=== PATIENT | male | born 1990 | race Caucasian/White ===

== ENCOUNTER 2021-07-03 09:29 | Emergency (ER) | payer OTHER, SELFPAY ==
[2021-07-03 09:40] VITALS: BP 143/89; PULSE 108; RESP 20; TEMP 36.6; O2SAT 99
--- NOTE | 2021-07-03 10:06 | ED.ABDPAIN ---
HPI - Abdominal Pain General Chief Complaint: Abdominal Pain Stated Complaint: Stomach Pain Time Seen by Provider: 07/03/21 10:06 Source: patient History of Present Illness HPI narrative: Patient presents with concerns for diarrhea. Patient states he has 2-3 loose stools daily. Patient denies any blood in the stools no mucus in his stools no history of abdominal problems. Patient states he did have a gastric sleeve 8 years ago but has had no problems or complications due to the procedure. Patient states he is getting in 2 weeks and is very stressed about the commitment. Patient has not take anything [id number] for his symptoms. Patient states he normally follows a keto diet. Patient denies any abdominal pain or discomfort at this time. Related Data Home Medications Medication Instructions Recorded Confirmed dextroamphetamine-amphetamine 10 mg PO DAILY 07/03/21 07/03/21 [Adderall XR] esomeprazole magnesium 40 mg PO DAILY 07/03/21 07/03/21 lorazepam 0.5 mg PO BID PRN 07/03/21 07/03/21 Allergies Allergy/AdvReac Type Severity Reaction Status Date / Time No Known Allergies Allergy Verified 07/03/21 10:01 Review of Systems Review of Systems: CONSTITUTIONAL: Denies fever, chills, or sweats. EYES: Denies visual changes, redness, or discharge. ENT: Denies rhinorrhea, congestion, sore throat, or otalgia. CARDIOVASCULAR: Denies chest pain, palpitations, or edema. RESPIRATORY: Denies cough or dyspnea. GASTROINTESTINAL: Denies abdominal pain, nausea, vomiting, or diarrhea. GENITOURINARY: Denies dysuria or hematuria. SKIN: Denies rash or itching. MUSCULOSKELETAL: Denies back pain, joint pain, or myalgia. NEUROLOGIC: Denies headache, numbness, or weakness. PSYCHIATRIC: Denies anxiety or depression. PMFSH Comments At time of signature, agree with nursing past medical, surgical, social and family history. There is no relevant family history pertinent to the presenting complaint Exam Narrative: GENERAL: Well-appearing, well-nourished, and in no acute distress. HEAD: Normocephalic, atraumatic. EYES: PERRLA and EOMI. ENT: Nares clear, no rhinorrhea or epistaxis. Mucous membranes moist. NECK: Supple. CHEST: Clear to auscultation. No respiratory distress. HEART: Regular rate and rhythm. No murmur heard. Normal peripheral pulses. ABDOMEN: Soft, nontender, nondistended, normal active bowel sounds. EXTREMITIES: Normal range of motion. No edema. SKIN: Warm, dry, no rash. NEURO: No focal deficits. Alert and oriented x3. [place] Coma Scale Eye Opening: Spontaneous 4 [place] Coma Scale Motor: Obeys Commands 6 [place] Coma Scale Verbal: Oriented 5 [place] Coma Scale Total 15 Course Vital Signs Vital signs: Vital Signs Temperature 36.6 C 07/03/21 09:40 Pulse Rate 108 H 07/03/21 09:40 Respiratory Rate 20 07/03/21 09:40 Blood Pressure 143/89 H 07/03/21 09:40 Pulse Oximetry 99 07/03/21 09:40 Temperature 36.6 C 07/03/21 09:40 Pulse Rate 108 H 07/03/21 09:40 Respiratory Rate 20 07/03/21 09:40 Blood Pressure 143/89 H 07/03/21 09:40 Pulse Oximetry 99 07/03/21 09:40 Addressed elevated BP today. Today's blood pressure higher than recommended range. Discussed importance of follow -up with PCP and possible fci effects/cardiovascular events related to HTN. Currently patient denies headache, dizziness, vision changes, CP or shortness of breath. Critical dx considered and discussed with pt. Educated patient on red flag s/s and to go to ED if s/s occur. Discussed with pt when to return to [facility] or primary care provider. Pt gave verbal understanding, all questions were answered, and pt was agreeable to plan long discussion with patient regarding relaxation techniques to prepare for upcoming wedding. Follow bland diet. Instructed to take Xanax as prescribed by Dr. Luna for anxiety. folloe up with Dr Luna as planned, if any new or worsening fo symptoms go to er immediately Patient ag
== END 2021-07-03 10:15 | disposition home or self-care (01) ==
PROVIDERS: Emergency Provider Nurse Practitioner Family; PCP Family Medicine
DX: R19.7 Diarrhea, unspecified (principal); A41.9 Sepsis, unspecified organism; Z98.84 Bariatric surgery status
CPT/HCPCS: 99211; G0463

== ENCOUNTER 2021-08-16 09:49 | Emergency (ER) | payer OTHER, SELFPAY ==
[2021-08-16 10:00] VITALS: BP 130/97; PULSE 104; RESP 16; TEMP 36.4; O2SAT 98
--- NOTE | 2021-08-16 11:11 | ED.ABDPAIN ---
HPI - Abdominal Pain General Chief Complaint: Abdominal Pain Stated Complaint: Stomach pain Time Seen by Provider: 08/16/21 11:11 Source: patient and RN notes reviewed Mode of arrival: ambulatory Limitations: no limitations History of Present Illness HPI narrative: 30-year-old male with history of anxiety, GERD and gastric sleeve presents with concern for epigastric pain that is intermittent in nature, diarrhea. Reports symptoms started 3 days ago. He reports he had a similar instance of abdominal pain with diarrhea 1 month ago that resolved spontaneously. Reports the pain is at most a 6/10 currently is 3/10. Reports diarrhea is worse in the morning, and causes him to not make it to the toilet not on occasions. He denies any vomiting or nausea. He reports he uses Imodium occasionally, tries not to use it every day. He reports poor appetite. MD elicited complaint: abdominal pain Related Data Home Medications Medication Instructions Recorded Confirmed esomeprazole magnesium 40 mg PO DAILY 07/03/21 08/16/21 lorazepam 0.5 mg PO BID PRN 07/03/21 08/16/21 Allergies Allergy/AdvReac Type Severity Reaction Status Date / Time No Known Allergies Allergy Verified 08/16/21 10:08 Review of Systems Review of Systems: CONSTITUTIONAL: Denies malaise, chills, sweats, or fever. CARDIOVASCULAR: Denies chest pain, palpitations, or edema. RESPIRATORY: Denies cough or dyspnea. GASTROINTESTINAL: Reports epigastric abdominal pain, diarrhea. Denies nausea, vomiting, bloody, or mucous stools. GENITOURINARY: Denies dysuria or hematuria. SKIN: Denies rash or itching, bruising, redness MUSCULOSKELETAL: Denies back pain, joint pain, or myalgia. All systems reviewed & are unremarkable except as noted in HPI and below PMFSH Comments At time of signature, agree with nursing past medical, surgical, social and family history. There is no relevant family history pertinent to the presenting complaint Exam Narrative: GENERAL: Well-appearing, well-nourished, and in no acute distress. HEAD: Normocephalic, atraumatic. EYES: PERRLA, conjunctivae clear, and EOMI. ENT: Nares clear, turbinates pink, no rhinorrhea or epistaxis. Mucous membranes moist. Oropharynx without edema, erythema, or lesions. Tonsils not enlarged and without exudate. NECK: Supple. No lymphadenopathy CHEST: Speaks in full sentences. No respiratory distress. HEART: Regular rate and rhythm. ABDOMEN: Soft, obese, nondistended. No guarding, no rebound tenderness, or rigidity. No pulsatilla masses. Bowel sounds present in all four quadrants. No organomegaly. Negative Abbott?s sign. No periumbilical tenderness. No Supra public tenderness or distension. Good femoral pulses bilaterally. No hernia noted. No scars or surface trauma. SKIN: Warm, dry, no rash. NEURO: Alert and oriented x3. PSYCH: Normal mood and affect Course Course Emergency Course: Patient given referral to GI, instructed to call today. Instructed to go to the emergency room if symptoms worsen before he can see GI. Patient is aware of diagnosis, understands and agrees to treatment plan. Anticipatory guidance given. Patient agrees to follow-up as directed and is aware of reasons to seek care at the emergency department. Portions of this record may have been created with voice recognition software Vital Signs Vital signs: Vital Signs Temperature 97.5 F L 08/16/21 10:00 Pulse Rate 104 H 08/16/21 10:00 Respiratory Rate 16 08/16/21 10:00 Blood Pressure 130/97 H 08/16/21 10:00 Pulse Oximetry 98 08/16/21 10:00 Temperature 97.5 F L 08/16/21 10:00 Pulse Rate 104 H 08/16/21 10:00 Respiratory Rate 16 08/16/21 10:00 Blood Pressure 130/97 H 08/16/21 10:00 Pulse Oximetry 98 08/16/21 10:00 Reviewed. MDM - Abdominal Pain MDM Narrative Medical decision making narrative: Exam findings show no acute concerns or changes; patient is non-toxic appearing and is in no distress. Patient is appropriate for ou
== END 2021-08-16 11:28 | disposition home or self-care (01) ==
PROVIDERS: Emergency Provider Nurse Practitioner; PCP Family Medicine
DX: R10.13 Epigastric pain (principal); R19.7 Diarrhea, unspecified; Z98.84 Bariatric surgery status; K21.9 Gastro-esophageal reflux disease without esophagitis; F41.9 Anxiety disorder, unspecified
CPT/HCPCS: 99211; G0463

== ENCOUNTER 2021-11-12 01:30 | Day surgery (SDC) | payer OTHER, SELFPAY ==
[2021-10-28 15:07] VITALS: BMI 30.8
[2021-11-12 10:58] VITALS: BP 149/104; PULSE 112; RESP 18; TEMP 36.2; O2SAT 98; BMI 32.6
[2021-11-12] MEDS: LACTATED RINGERS 1,000 ML 150 ML IV CONT (11:01)
--- NOTE | 2021-11-12 11:03 | PM.HPGS ---
History of Present Illness History of Present Illness Consent: Risks, benefits, and alternatives have been discussed and questions answered. Patient agrees to proceed with procedure. Chief complaint: diarrhea, abd pain Narrative: Dov Matamoros is a 31 year old male here for egd and colonoscopy. Had gastric sleeve 6-7 years ago, lost about 90 lb. Almost a year of intermittent loss stools, he had accidents about 4-5 times last year better after changed his diet, also epigastric pain on antacids prn Review of Systems Constitutional: Constitutional: Denies headache(s) and Denies weakness Eyes: Eyes: Denies blurry vision ENT: Reports Normal hearing present, Denies headache(s) and Denies neck pain Cardiovascular: Cardiovascular: Denies chest pain and Denies dyspnea Respiratory: Respiratory: Denies dyspnea Gastrointestinal: Gastrointestinal: Reports no additional gastrointestinal complaints Genitourinary: Genitourinary: Denies dysuria Musculoskeletal: Musculoskeletal: Denies neck pain Integumentary/Breasts: Skin/Breast: Denies dry skin Neurologic: Reports Normal hearing present, Denies headache(s) and Denies weakness Psychiatric: Psychiatric: Denies anxiety Endocrine: Endocrine: Denies change in body appearance Hematologic/Lymphatic: Hematologic/Lymphatic: Denies easy bleeding Allergic/Immunologic: Allergic/Immunologic: Denies urticaria PMFSH Past Medical History Medical History (Updated 09/23/21 @ 10:34 by Luís Ochoa MD) Anxiety GERD (gastroesophageal reflux disease) Hepatitis A Surgical History Surgical History (Updated 09/23/21 @ 10:34 by Luís Ochoa MD) H/O gastric sleeve Social History Social History (Updated 09/23/21 @ 10:17 by Leslie Brasher CMA) Smoking status: Former smoker Alcohol intake: current Drinks per week: 4 Alcohol use details: social Substance use: never Substance use type: does not use Living arrangements: with family Spiritual care concerns: No Meds Home Medications and Allergies Home Medications Medication Instructions Recorded Confirmed Type esomeprazole magnesium 40 mg PO DAILY 07/03/21 10/19/21 History lorazepam 0.5 mg PO BID PRN 07/03/21 10/19/21 History dextroamphetamine-amphetamine 10 10 mg PO DAILY 09/23/21 10/19/21 History mg tablet diphenoxylate-atropine 2.5 1 tablet PO QID PRN 09/23/21 10/28/21 History mg-0.025 mg tablet Adults Multivitamin 1 tab-cap PO DAILY 10/19/21 10/19/21 History cholecalciferol (vitamin D3) 125 mcg PO DAILY 10/19/21 10/19/21 History [Vitamin D3] Allergies Allergy/AdvReac Type Severity Reaction Status Date / Time No Known Allergies Allergy Verified 11/12/21 10:57 Vital Signs Vital Signs - 24 hr 11/12/21 10:58 Temperature 97.1 F L Pulse Rate 112 H Respiratory Rate 18 Blood Pressure 149/104 H Pulse Oximetry 98 Exam Const: General: comfortable and no acute distress HENMT: General nose exam: Normal nares present Eyes: General: appearance normal, both eyes and all related structures Neck: Neck: no JVD Resp: Auscultation: clear to auscultation bilaterally Cardio: Rate: regular rate Rhythm: regular rhythm GI: Inspection: non-distended GI Palp: Yes Soft to palpation Skin: General skin exam: normal color Neuro: General: gait normal Speech: normal speech Extrem: General: normal to inspection Psych: Mental Status: mental status grossly normal Assessment and Plan Assessment and plan (1) GERD (gastroesophageal reflux disease): Code(s): K21.9 - Gastro-esophageal reflux disease without esophagitis Status: Acute Assessment and Plan: egd with bx (2) Diarrhea: Code(s): R19.7 - Diarrhea, unspecified Status: Inactive Assessment and Plan: colonoscopy, never had one (3) H/O gastric sleeve: Code(s): Z90.3 - Acquired absence of stomach [part of] Status: Acute
--- NOTE | 2021-11-12 11:06 | P.PNAN_ITS ---
Anes - Initial Pre Proc Eval Procedure: Operation Date: 11/12/21 12:30 Proposed Procedures p Esophagogastroduodenoscopy & Colonoscopy - Luís Ochoa MD Date/Time: 11/12/21 11:06 Surgeon: Luís Ochoa MD Pre Op Diagnosis: diarrhea, abd pain Patient Data Age: 31 Gender: M Height: 1.88 m Weight: 115.5 kg Last Vital Signs Temp 36.2 C L 11/12/21 10:58 Pulse 112 H 11/12/21 10:58 Resp 18 11/12/21 10:58 BP 149/104 H 11/12/21 10:58 Pulse Ox 98 11/12/21 10:58 Allergies Allergy/AdvReac Type Severity Reaction Status Date / Time No Known Allergies Allergy Verified 11/12/21 10:57 Home Medications Medication Instructions Recorded Confirmed Type esomeprazole magnesium 40 mg PO DAILY 07/03/21 10/19/21 History lorazepam 0.5 mg PO BID PRN 07/03/21 10/19/21 History dextroamphetamine-amphetamine 10 10 mg PO DAILY 09/23/21 10/19/21 History mg tablet diphenoxylate-atropine 2.5 1 tablet PO QID PRN 09/23/21 10/28/21 History mg-0.025 mg tablet Adults Multivitamin 1 tab-cap PO DAILY 10/19/21 10/19/21 History cholecalciferol (vitamin D3) 125 mcg PO DAILY 10/19/21 10/19/21 History [Vitamin D3] Patient hx anesthesia problems: none Family hx anesthesia problems: none Results Review: All pre-operative results and documents have been reviewed as part of the pre-operative evaluation. [facility], [facility] Past Medical History Medical History ADHD Anxiety GERD (gastroesophageal reflux disease) Hepatitis A Surgical History Surgical History H/O gastric sleeve Social History Social History Smoking status: Former smoker Alcohol intake: current Drinks per week: 4 Alcohol use details: social Substance use: never Substance use type: does not use Living arrangements: with family Spiritual care concerns: No Anes - Eval Final PreProcedure Day of Procedure 11/12/21 11:06 Patient weight: obese Heart: regular rate and rhythm Lungs: clear to auscultation Airway: Mallampati scale class II Neurological: alert and oriented Last oral intake: >/= 8 hours ASA classification: III Emergent: no Anesthetic plan: proceed Anesthesia type and monitoring: general GIVS and standard monitoring Results Review: All pre-operative results and documents have been reviewed as part of the pre-operative evaluation. Informed Consent: The patient's anesthetic plan and its attendant risks and benefits were discussed with the patient/family/POA. Questions were solicited and answers provided to the satisfaction of the patient/family/POA.
[2021-11-12] MEDS: BENZOCAINE (*SP) 60 ML SPRAY CAN (HURRICAINE) 1 SPRAY MUCOUS MEM (11:09)
--- NOTE | 2021-11-12 11:31 | SUR.OPER ---
EGD START 1113, END 1117 COLONOSCOPY START 1121, END 1130
[2021-11-12 11:33] VITALS: BP 127/90; PULSE 121; RESP 25; O2SAT 98
[2021-11-12 11:44] VITALS: BP 140/95; PULSE 103; RESP 22; O2SAT 100
[2021-11-12 11:54] VITALS: BP 150/103; PULSE 85; RESP 21; O2SAT 100
== END 2021-11-12 12:10 | disposition home or self-care (01) ==
PROVIDERS: PCP Family Medicine; Visit Provider Internal Medicine Gastroenterology
PROC: 0DJ08ZZ Inspection of Upper Intestinal Tract, Via Natural or Artificial Opening Endoscopic (ICD-10-PCS; CPT 43235; principal; 2021-11-12 12:30)
DX: Z12.11 Encounter for screening for malignant neoplasm of colon (principal); D12.3 Benign neoplasm of transverse colon; R19.7 Diarrhea, unspecified; K64.8 Other hemorrhoids; R10.13 Epigastric pain; K21.9 Gastro-esophageal reflux disease without esophagitis; K29.50 Unspecified chronic gastritis without bleeding; F90.9 Attention-deficit hyperactivity disorder, unspecified type; F41.9 Anxiety disorder, unspecified; B15.9 Hepatitis A without hepatic coma; Z87.891 Personal history of nicotine dependence; E66.8 Other obesity; Z68.32 Body mass index [BMI] 32.0-32.9, adult; Z90.3 Acquired absence of stomach [part of]
CPT/HCPCS: 45385; 45380; 43239; 88305; J2001; J2704; J7120

== ENCOUNTER 2022-07-14 14:10 | Emergency (ER) | payer OTHER, SELFPAY ==
--- NOTE | 2022-07-14 14:12 | ED.HA ---
HPI - Headache General Chief Complaint: Headache Stated Complaint: Headaches Time Seen by Provider: 07/14/22 14:13 Source: patient and RN notes reviewed History of Present Illness HPI Narrative: Patient is a 31-year-old male who presents to the Urgent Care with complaints of a left-sided headache for the last week. Patient states he has also had some sinus issues and pressure with runny nose. Patient states that every year whenever the weather changes he has the same issues. States that he went to the pharmacy and was told by 1 pharmacist to use Flonase nasal spray and come back as it did not work to obtain Sudafed. Patient states that he went back to obtain the Sudafed and another pharmacist said to go directly to the hospital . Patient states that made him very anxious and now he is concerned. Patient denies any vision changes, nausea, vomiting. States the headache is relieved with ibuprofen. No other acute complaints. No acute distress noted. Patient aware of the plan of care. Some parts of this dictation were generated by voice recognition software and may contain typographical and/or grammatical inaccuracies. Related Data Home Medications Medication Instructions Recorded Confirmed lorazepam 0.5 mg tablet 0.5 mg PO BID PRN Anxiety 07/03/21 10/19/21 bupropion HCl 150 mg 24 hr tablet, mg PO 07/14/22 extended release buspirone 5 mg tablet mg 07/14/22 Allergies Allergy/AdvReac Type Severity Reaction Status Date / Time No Known Allergies Allergy Verified 07/14/22 14:21 Review of Systems Review of Systems: CONSTITUTIONAL: Denies fever, chills, or sweats. EYES: Denies visual changes, redness, or discharge. ENT: reported nasal congestion and sinus pressure with rhinorrhea CARDIOVASCULAR: Denies chest pain, palpitations, or edema. RESPIRATORY: Denies cough or dyspnea. GASTROINTESTINAL: Denies abdominal pain, nausea, vomiting, or diarrhea. GENITOURINARY: Denies dysuria or hematuria. SKIN: Denies rash or itching. MUSCULOSKELETAL: Denies back pain, joint pain, or myalgia. NEUROLOGIC: Reports of headache All other systems reviewed are negative, except as documented in HPI. [facility] Past Medical History Medical History (Updated 07/14/22 @ 14:41 by FAY Lan) ADHD Anxiety GERD (gastroesophageal reflux disease) Hepatitis A Irritable bowel syndrome with diarrhea Surgical History Surgical History H/O gastric sleeve Social History Social History Smoking status: Former smoker Alcohol intake: current Drinks per week: 4 Alcohol use details: social Substance use: never Substance use type: does not use Spiritual care concerns: No Comments At the time of my signature, I reviewed and agree with the nursing past medical, surgical, social, and family history. There is no relevant family history pertinent to the patient complaint. Exam Narrative: GENERAL: This is a well-nourished, well-developed patient, in no apparent distress. HEAD: normocephalic, atraumatic. EYES: PERRL. Sclera clear/white. Vision is grossly intact. EARS: External ears normal, auditory canals clear and without drainage, TMs normal without perforation. Hearing grossly intact. NOSE: External nose normal with no obvious nasal discharge, nares without redness, no rhinorrhea. THROAT: Mucous membranes moist, posterior pharynx clear. mild postnasal drainage NECK: Neck supple, non-tender without lymphadenopathy CARDIOVASCULAR: Regular rate and rhythm without murmurs, gallops, or rubs. RESPIRATORY: Clear to auscultation. Breath sounds equal bilaterally. No wheezes, rales, or rhonchi. SKIN: warm, intact with no suspicious lesions or rash, good texture and turgor. NEURO: awake, alert, and oriented to person, place and time. There were no obvious focal neurologic abnormalities. EXTREMITIES: No clubbing, cyanos
[2022-07-14 14:14] VITALS: BP 144/92; PULSE 130; RESP 22; TEMP 36.7; O2SAT 97
== END 2022-07-14 14:50 | disposition home or self-care (01) ==
PROVIDERS: Emergency Provider Nurse Practitioner Family; PCP Family Medicine
DX: J32.9 Chronic sinusitis, unspecified (principal); R51.9 Headache, unspecified; F41.9 Anxiety disorder, unspecified; K21.9 Gastro-esophageal reflux disease without esophagitis; Z98.84 Bariatric surgery status
CPT/HCPCS: 99211; G0463